=== PATIENT | male | born 1975 | race Caucasian/White ===

== ENCOUNTER 2018-02-01 16:06 | Emergency (ER) | payer OTHER ==
[2018-02-01] MEDS: IBUPROFEN 800 MG TAB PO (16:25)
== END 2018-02-01 17:25 | disposition home or self-care (01) ==
LOC: FTE 16:06
DX: S69.92XA Unspecified injury of left wrist, hand and finger(s), initial encounter (principal); F17.210 Nicotine dependence, cigarettes, uncomplicated; W11.XXXA Fall on and from ladder, initial encounter; Y92.9 Unspecified place or not applicable
CPT/HCPCS: 29125; 73090; 99283-25

== ENCOUNTER 2018-03-26 23:36 | Emergency (ER) | payer OTHER ==
[2018-03-27] MEDS: IBUPROFEN 800 MG TAB PO (01:15)
[2018-03-27] MEDS: HYDROCODONE/APAP (10/325) TAB PO (01:16)
== END 2018-03-27 04:36 | disposition home or self-care (01) ==
LOC: FTE 23:36
DX: S82.402A Unspecified fracture of shaft of left fibula, initial encounter for closed fracture (principal); V18.0XXA Pedal cycle driver injured in noncollision transport accident in nontraffic accident, initial encounter; Z87.891 Personal history of nicotine dependence
CPT/HCPCS: 29515; 73590; 73610; 73630-LT; 99283-25